=== PATIENT | male | born 1995 | race Caucasian/White ===

== ENCOUNTER → 2023-10-19 | Emergency (ER) | payer OTHER ==
[~2023-10-19] MED LIST: KETOROLAC 30 MG/ML INJ ONE; ONDANSETRON 4 MG (ODT) TAB ONE; SMZ./TMP. 800/160 MG TABLET ONE
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
[2023-10-19 07:46] VITALS: BP 121/77; TEMP 97.1; O2SAT 99
--- NOTE | 2023-10-19 19:24 | RAD REPORT ---
EXAM DESCRIPTION: CT - Chest Abd Pelvis Wo Con - 10/19/2023 6:53 am CLINICAL HISTORY: Chest right puncture wound COMPARISON: None. TECHNIQUE: CT CHEST ABDOMEN PELVIS WITHOUT IV CONTRAST on 10/19/2023 4:09 AM CDT This exam was performed according to our departmental dose-optimization program, which includes autom ated exposure control, adjustment of the mA and/or kV according to patient size and/or use of iterati ve reconstruction technique. FINDINGS: Chest: The heart is normal in size. There is no pericardial effusion. Intrathoracic lymph nodes are not enlarged. There is no pleural effusion, pleural thickening or pneumothorax. Central airways are patent. Lungs a re clear with no consolidation, mass or interstitial lung disease. Abdomen: The liver is normal in appearance. There is no biliary dilatation. Gallbladder is normal in appearance. The pancreas and spleen are normal in appearance. The adrenal glands and kidneys are unre markable. Abdominal aorta is normal in course and caliber without aneurysm. There is no free air. There is no r etroperitoneal adenopathy. Pelvis: There is no bowel obstruction. Urinary bladder is unremarkable. There is no free fluid. Appen lacie is normal. Skeleton: There are no acute osseous findings. No suspicious bony lesions. IMPRESSION: No definite acute posttraumatic findings. No evidence of penetrating injury in the chest . Electronically signed by: Marino Smith MD 10/19/2023 06:21 AM CDT Due to temporary technical issues with the PACS/Fluency reporting system, reports are being signed by the in house radiologists without review as a courtesy to insure prompt reporting. The interpreting radiologist is fully responsible for the content of the report.
== END ==
LOC: ER 03:38
DX: S20.311A Abrasion of right front wall of thorax, initial encounter (principal); S60.512A Abrasion of left hand, initial encounter; L08.9 Local infection of the skin and subcutaneous tissue, unspecified
CPT/HCPCS: 71250; 74176; Q0162